=== PATIENT | female | born 1990 | race Hispanic/Latino ===

== ENCOUNTER → 2018-12-06 | Outpatient (CLI) | payer BC ==
[~2018-12-06] MED LIST: ESTROGEL50 GM; PROGESTERO50 MG/1 ML; RECLIPSEN1 EACH PO
[2018-12-06 12:06] LABS: BILIRUBIN,URINE NEGATIVE (NEGATIVE); CLARITY,URINE CLEAR (CLEAR); COLOR,URINE YELLOW (YELLOW); KETONES,URINE NEGATIVE (NEGATIVE); LEUKOCYTE ESTERASE ,URINE SMALL (NEGATIVE); NITRITE,URINE POSITIVE (NEGATIVE); URINE UROBILINOGEN 1 mg/dL (0.2 - 1)
[2018-12-06 12:15] LABS: PROTEIN,URINE DIPSTICK 3+ (NEGATIVE)
== END ==
LOC: LAB 11:24
PROVIDERS: ATTEND Urology
DX: N39.0 Urinary tract infection, site not specified (principal)
CPT/HCPCS: 81003; 87086; 87186

== ENCOUNTER → 2020-03-26 | Day surgery (SDC) | payer BC, OTHER ==
[~2020-03-26] MED LIST changes: +BENADRYL25 M1 PO; +DEXILANT60 MG PO; +ENSKYCE 28 TAB1 EACH PO; +FAMOTIDINE 20 MG/2 ML VIAL IV ONE; +FENTANYL CITRATE/PF 100MCG/2 ML INJ ONE; +LIDOCAINE HCL 2% LOCAL INJ 5 ML SDV VIAL INJ ONE; +MIDAZOLAM HCL 2 MG/2 ML VIAL ONE; +PREDNISONE20 MG PO; +PROPOFOL IV EMULSION 10 MG/ML 20 ML VIAL ONE; +PROVENTIL HFA6.7 GM INH
[2020-03-26 13:00] VITALS: BP 116/61
== END | disposition home or self-care (01) ==
LOC: OR 09:56
PROVIDERS: ATTEND Internal Medicine Gastroenterology
DX: K31.7 Polyp of stomach and duodenum (principal); K44.9 Diaphragmatic hernia without obstruction or gangrene; K21.00 Gastro-esophageal reflux disease with esophagitis, without bleeding; K29.00 Acute gastritis without bleeding; R63.4 Abnormal weight loss; Z91.013 Allergy to seafood; Z01.812 Encounter for preprocedural laboratory examination; Z20.828 Contact with and (suspected) exposure to other viral communicable diseases
CPT/HCPCS: 43239; 81025; 88304; 88305; 88312; J2001; J2250; J2704; J3010; U0002

== ENCOUNTER 2023-08-31 08:52 | Emergency (ER) | payer BC ==
[~2023-08-31] VITALS: Ht 160 cm; Wt 77.1 kg
[~2023-08-31 08:52] MED LIST changes: +CEPHALEXIN500 MG PO; -FAMOTIDINE 20 MG/2 ML VIAL IV ONE; -FENTANYL CITRATE/PF 100MCG/2 ML INJ ONE; -LIDOCAINE HCL 2% LOCAL INJ 5 ML SDV VIAL INJ ONE; -MIDAZOLAM HCL 2 MG/2 ML VIAL ONE; -PROPOFOL IV EMULSION 10 MG/ML 20 ML VIAL ONE
[2023-08-31 08:57] VITALS: O2SAT 100
== END 2023-08-31 10:37 | disposition home or self-care (01) ==
LOC: ER 08:57
DX: R21 Rash and other nonspecific skin eruption (principal); M25.59 Pain in other specified joint
CPT/HCPCS: 99282